=== PATIENT | female | born 1990 | race Caucasian/White ===

== ENCOUNTER 2020-03-12 08:06 | Outpatient (REF) | payer OTHER, SELFPAY | END 2020-03-12 08:07 | disposition home or self-care (01) | LOC: HO.LAB 08:06 | PROVIDERS: PCP Internal Medicine; Visit Provider Internal Medicine | DX: Z20.828 Contact with and (suspected) exposure to other viral communicable diseases (principal) | CPT/HCPCS: 87635 ==

== ENCOUNTER 2020-04-16 15:29 | Outpatient (REF) | payer OTHER, SELFPAY ==
[2020-04-16 16:02] LABS: MANUAL DIFF FLAG NO
[2020-04-16 16:05] LABS: Basophils Absolute Auto 0.1 X10*3/uL (0.0-0.2); Basophils Percent Auto 0.7 % (0-2); Eosinophils Absolute Auto 0.1 X10*3/uL (0.0-0.4); Eosinophils Percent Auto 1.1 % (0-4); Hematocrit 36.4 % (37-47); Hemoglobin 12.2 g/dl (12.0-16.0); Imm Gran Abs Auto 0.02 X10*3/uL (0.00-0.03); Imm Gran Pct Auto 0.2 % (0.0-0.4); Lymphocytes Absolute Auto 3.2 X10*3/uL (1.2-4.9); Lymphocytes Percent Auto 34.7 % (20-40); Mean Corpuscular HGB Conc 33.5 g/dl (31.0-35.0); Mean Corpuscular Hemoglobin 31.1 pg (27.0-33.0); Mean Corpuscular Volume 92.9 fL (80-98); Mean Platelet Volume 11.3 fL (9.4-12.3); Monocytes Absolute Auto 0.9 X10*3/uL (0.1-1.2); Monocytes Percent Auto 9.4 % (2-11); Neutrophils Percent Auto 53.9 % (45-73); Platelet Count 175 X10*3/uL (160-400); Red Blood Count 3.92 X10*6/uL (4.20-5.50); White Blood Count 9.2 X10*3/uL (4.8-10.8)
[2020-04-16 16:28] LABS: C Reactive Protein 0.15 mg/dL (< or = 0.50)
== END 2020-04-16 15:30 | disposition home or self-care (01) ==
LOC: HO.LAB 15:29
PROVIDERS: PCP Internal Medicine; Visit Provider Internal Medicine
DX: G43.909 Migraine, unspecified, not intractable, without status migrainosus (principal)
CPT/HCPCS: 36415; 85025; 86140

== ENCOUNTER → 2020-04-21 09:06 | Outpatient (BNVA) | payer OTHER, SELFPAY | PROVIDERS: PCP Internal Medicine; Referring Provider Internal Medicine; Visit Provider Urology | DX: Z76.89 Persons encountering health services in other specified circumstances (principal) ==

== ENCOUNTER → 2020-05-26 10:33 | Outpatient (BNVA) | payer OTHER, SELFPAY | PROVIDERS: PCP Internal Medicine; Visit Provider Surgery | DX: Z76.89 Persons encountering health services in other specified circumstances (principal) ==

== ENCOUNTER 2020-08-17 11:14 | Outpatient (REF) | payer OTHER, SELFPAY ==
[2020-08-17 16:49] LABS: CT PCR NOT DETECTED (Not Detect.); NG PCR NOT DETECTED (Not Detect.)
[2020-08-18 09:04] LABS: BV Int Neg Control Negative (Negative); BV Int Pos Control Positive (Positive)
== END 2020-08-17 11:15 | disposition home or self-care (01) ==
LOC: HO.LAB 11:14
PROVIDERS: Visit Provider Obstetrics & Gynecology
DX: Z11.3 Encounter for screening for infections with a predominantly sexual mode of transmission (principal); Z12.4 Encounter for screening for malignant neoplasm of cervix
CPT/HCPCS: 87480; 87491; 87510; 87591; 87660; 88142

== ENCOUNTER 2020-08-26 15:44 | Outpatient (REF) | payer OTHER, SELFPAY ==
--- NOTE | ~2020-08-26 | US_ITS ---
EXAMINATION: US PELVIS COMPLETE CLINICAL INFORMATION: Pelvic and perineal pain. COMPARISON: Ultrasound pelvis 06/06/2019. TECHNIQUE: Transabdominal and transvaginal ultrasound of the pelvis is performed. FINDINGS: On transabdominal ultrasound, the uterus is anteverted and anteflexed measuring 7.9 cm in length, 3.2 cm in AP and 4.5 cm in transverse dimension. Endometrial thickness is 0.5 cm. There is no focal lesion seen. There are small anechoic nabothian cysts with echogenic calcifications measuring 0.8 x 0.4 x 0.6 cm seen in the cervix. The right ovary measures 4.1 x 3.2 x 2.5 cm and volume 17.2 mL. It appears unremarkable. Previously, it measured 4.4 x 2.4 x 3.0 cm. The left ovary measures 3.1 x 2.4 x 2.2 cm and volume 8.6 mL. Previously, it measured 3.5 x 2.0 x 2.8 cm. US/US transvaginal IMPRESSION: 1. Complex nabothian cysts with calcification seen in the cervix. 2. The uterus and ovaries are unremarkable.
--- NOTE | ~2020-08-26 | US_ITS ---
EXAMINATION: US PELVIS COMPLETE CLINICAL INFORMATION: Pelvic and perineal pain. COMPARISON: Ultrasound pelvis 06/06/2019. TECHNIQUE: Transabdominal and transvaginal ultrasound of the pelvis is performed. FINDINGS: On transabdominal ultrasound, the uterus is anteverted and anteflexed measuring 7.9 cm in length, 3.2 cm in AP and 4.5 cm in transverse dimension. Endometrial thickness is 0.5 cm. There is no focal lesion seen. There are small anechoic nabothian cysts with echogenic calcifications measuring 0.8 x 0.4 x 0.6 cm seen in the cervix. The right ovary measures 4.1 x 3.2 x 2.5 cm and volume 17.2 mL. It appears unremarkable. Previously, it measured 4.4 x 2.4 x 3.0 cm. The left ovary measures 3.1 x 2.4 x 2.2 cm and volume 8.6 mL. Previously, it measured 3.5 x 2.0 x 2.8 cm. US/US pelvic complete IMPRESSION: 1. Complex nabothian cysts with calcification seen in the cervix. 2. The uterus and ovaries are unremarkable.
== END 2020-08-26 15:45 | disposition home or self-care (01) ==
LOC: HO.US 15:44
PROVIDERS: Visit Provider Obstetrics & Gynecology
DX: R10.2 Pelvic and perineal pain (principal)
CPT/HCPCS: 76830; 76856

== ENCOUNTER 2020-09-24 09:38 | Outpatient (REF) | payer OTHER, SELFPAY ==
[2020-09-24 14:10] LABS: HCG Quantitative 8600 mIU/mL
== END 2020-09-24 09:39 | disposition home or self-care (01) ==
LOC: HO.LAB 09:38
PROVIDERS: PCP Internal Medicine; Visit Provider Obstetrics & Gynecology
DX: O99.411 Diseases of the circulatory system complicating pregnancy, first trimester (principal); Z86.73 Personal history of transient ischemic attack (TIA), and cerebral infarction without residual deficits; Z3A.01 Less than 8 weeks gestation of pregnancy
CPT/HCPCS: 36415; 84702

== ENCOUNTER 2020-09-24 14:21 | Outpatient (REF) | payer OTHER, SELFPAY ==
--- NOTE | ~2020-09-24 | US_ITS ---
EXAMINATION: US OB PELVIC CLINICAL INFORMATION: Evaluate early stage of . COMPARISON: Ultrasound pelvis 08/26/2020 TECHNIQUE: Transabdominal pelvic ultrasound was performed. FINDINGS: There is a single gestational sac with visualization of yolk sac. The pole is not seen. No heartbeat seen. The mean gestational age is 1.05 cm corresponding to 7 weeks 2 days. The right ovary measures 4.24 x 2.98 x 2.91 cm. There is a small corpus luteal cyst measuring 2.1 x 1.6 x 1.2 cm. The left ovary measures 3.28 x 2.22 x 2.90 cm. There is no free fluid in the cul-de-sac. US/US OB pelvic and transvaginal IMPRESSION: Intrauterine gestational sac seen. There is no pole visualized. Mean gestational sac diameter corresponds to 7 weeks and 2 days.
== END 2020-09-24 14:22 | disposition home or self-care (01) ==
LOC: HO.HMGCX 14:21
PROVIDERS: PCP Internal Medicine; Visit Provider Obstetrics & Gynecology
DX: O99.411 Diseases of the circulatory system complicating pregnancy, first trimester (principal); Z3A.01 Less than 8 weeks gestation of pregnancy; Z86.73 Personal history of transient ischemic attack (TIA), and cerebral infarction without residual deficits
CPT/HCPCS: 76801; 76817

== ENCOUNTER 2020-10-08 10:03 | Outpatient (REF) | payer OTHER, SELFPAY ==
--- NOTE | ~2020-10-08 | US_ITS ---
EXAMINATION: US OBSTETRICAL ULTRASOUND CLINICAL INFORMATION: Size and dates. COMPARISON: None. LMP: 08/12/2020. Gestational age by maternal dates is 8 weeks and 1 day. Estimated date of delivery by maternal dates is 05/19/2021. TECHNIQUE: Transabdominal ultrasound of the pelvis is performed. FINDINGS: There is a single intrauterine gestational sac with visible yolk sac, embryo/fetus, and cardiac activity. There is no significant subchorionic hemorrhage or hematoma. HR: 139 beats per minute. CRL (crown rump length): 1.21 cm (7 weeks and 3 days +/- 4 days). CARLI (estimated date of delivery): 05/24/2021 +/- 4 days. There is visualization of yolk sac and heart rate. MATERNAL ADNEXA: The right maternal ovary measures 3.4 x 3.4 x 2.2 cm. There is involuting corpus luteal cyst. The left maternal ovary measures 2.7 x 3.3 x 2.1 cm. It appears unremarkable There is trace free fluid in the cul-de-sac. US/US OB <= 14 weeks fetus IMPRESSION: 1. Single intrauterine gestation with ultrasound gestational age of 7 weeks and 3 days +/- 4 days. 2. Estimated date of delivery is 05/24/2021 +/- 4 days. 3. Involuting corpus luteal cyst right ovary. 4. Trace free fluid in cul-de-sac.
== END 2020-10-08 10:04 | disposition home or self-care (01) ==
LOC: HO.US 10:03
PROVIDERS: Visit Provider Obstetrics & Gynecology
DX: Z34.90 Encounter for supervision of normal pregnancy, unspecified, unspecified trimester (principal)
CPT/HCPCS: 76801

== ENCOUNTER 2020-11-06 16:46 | Outpatient (REF) | payer OTHER, SELFPAY ==
[2020-11-06 18:29] LABS: Hematocrit 36.8 % (37-47); Hemoglobin 12.7 g/dl (12.0-16.0); Mean Corpuscular HGB Conc 34.5 g/dl (31.0-35.0); Mean Corpuscular Hemoglobin 31.1 pg (27.0-33.0); Mean Platelet Volume 10.9 fL (9.4-12.3); Platelet Count 206 X10*3/uL (160-400); Red Blood Count 4.09 X10*6/uL (4.20-5.50); Red Cell Distribution Width 11.9 % (11.0-16.0); White Blood Count 11.2 X10*3/uL (4.8-10.8)
[2020-11-06 19:30] LABS: Syphilis Screen Nonreactive (Nonreactive)
[2020-11-09 08:23] LABS: HBsAGNum1 0.34 S/CO (0.00-0.99); Hepatitis B Surface Antigen Negative (Negative); ~HepC Num1 0.13 S/CO (0.00-0.79); ~Hepatitis C Antibody Nonreactive (Nonreactive)
[2020-11-09 08:31] LABS: HIV AB/AG Nonreactive (Nonreactive)
[2020-11-09 17:52] LABS: Rubella IgG Antibody 4.88 Index
[2020-11-11 21:48] LABS: Beta-2 Glycoprotein IgA <2.0 U/mL (<20.0); Beta-2 Glycoprotein IgG <2.0 U/mL (<20.0); Beta-2 Glycoprotein IgM <2.0 U/mL (<20.0)
== END 2020-11-06 16:47 | disposition home or self-care (01) ==
LOC: HO.LAB 16:46
PROVIDERS: PCP Internal Medicine; Visit Provider Advanced Practice Midwife
DX: Z34.90 Encounter for supervision of normal pregnancy, unspecified, unspecified trimester (principal)
CPT/HCPCS: 36415; 85027; 86146; 86762; 86780; 86787; 86803; 86850; 86900; 86901; 87086; 87340; 87389

== ENCOUNTER 2020-11-11 11:43 | Emergency (ER) | payer OTHER, SELFPAY ==
--- NOTE | ~2020-11-11 | US_ITS ---
EXAMINATION: US PELVIS, LIMITED/FOLLOW UP and appendix ultrasound CLINICAL INFORMATION: Right lower quadrant pain COMPARISON: Previous OB ultrasound 10/08/2020 TECHNIQUE: Transabdominal imaging of the right lower quadrant and right pelvis FINDINGS: The right ovary measures 3.6 x 1.8 x 3.1 cm. There is a 1.3 x 1.2 x 1.2 cm complex cyst in the right ovary probably representing a corpus luteum. There is no fluid seen in the pelvis. The appendix is not identified. There is no fluid seen in the right lower quadrant. US/US pelvic limited IMPRESSION: Normal-appearing right ovary. The appendix is not identified.
--- NOTE | ~2020-11-11 | US_ITS ---
EXAMINATION: US PELVIS, LIMITED/FOLLOW UP and appendix ultrasound CLINICAL INFORMATION: Right lower quadrant pain COMPARISON: Previous OB ultrasound 10/08/2020 TECHNIQUE: Transabdominal imaging of the right lower quadrant and right pelvis FINDINGS: The right ovary measures 3.6 x 1.8 x 3.1 cm. There is a 1.3 x 1.2 x 1.2 cm complex cyst in the right ovary probably representing a corpus luteum. There is no fluid seen in the pelvis. The appendix is not identified. There is no fluid seen in the right lower quadrant. US/US appendix IMPRESSION: Normal-appearing right ovary. The appendix is not identified.
[2020-11-11 11:50] VITALS: BP 126/76; PULSE 86; RESP 18; TEMP 36.7; O2SAT 99; BMI 24.8
--- NOTE | 2020-11-11 11:56 | ED_ITS ---
HPI - Abdominal Pain General Chief Complaint: Abdominal Pain Stated Complaint: Abd Pain Time Seen by Provider: 11/11/20 11:53 Source: patient Mode of arrival: ambulatory Limitations: no limitations History of Present Illness HPI narrative: 30 yo female hx of complex migraines, PFO but not a stroke, G1 D = LMP and US here with R sided pelvic pain after US yesterday after tech was pushing (regular screening OB US) no dysuria, + BM x 2, had US yesterday told R ovary was normal has hx of R sided ovarian cysts MD elicited complaint: other (pelvic pain) Pertinent past history: other (ovarian cyst) Onset (ago): day(s) (1) Pain Consistency: constant Location: pelvis Severity: moderate Quality: aching Radiation: none Migration to: no migration Exacerbating factors: nothing Relieving factors: nothing Context: other ( ) Associated symptoms: denies other symptoms Related Data Home Medications Medication Instructions Recorded Confirmed nitrofurantoin 1 cap PO BID 04/21/20 monohydrate/macrocrystals 100 mg capsule propranolol 60 mg capsule,24 60 mg PO DAILY 04/21/20 hr,extended release acyclovir 400 mg tablet 400 mg PO DAILY 09/24/20 prenat.vits,sonia,eja-pnyu-czsxj 1 tab PO DAILY 09/24/20 Previous Rx's Medication Instructions Recorded trimethoprim 100 mg tablet 100 mg PO DAILY 90 Days #90 tab 04/21/20 nitroglycerin 0.4 % (w/w) rectal 1 inch NJ BID #30 g 05/26/20 ointment Allergies Allergy/AdvReac Type Severity Reaction Status Date / Time penicillin V Allergy Unknown rash Verified 09/24/20 09:48 Penicillins [PENICILLINS] Allergy Unknown RASH Verified 09/24/20 09:48 Review of Systems Review of Systems Constitutional : No Weight loss, No Fever, No Chills ENT/Mouth : No sore throat, No Rhinorrhea Eyes: No Swelling, No Redness Cardiovascular : No Chest Pain, No SOB, NoEdema Respiratory : No Cough, No Sputum, No Wheezing Gastrointestinal : no Nausea, no Vomiting, no Diarrhea, positive abdominal Pain, No Hematochezia, No Melena Genitourinary : No Dysuria, No Urinary Frequency, No Hematuria, No Urgency Musculoskeletal : No joint pain, No Myalgias, No Joint Swelling Skin : No Skin Lesions, No rash Neuro : No Weakness, No Numbness, No Dizziness, No Headache Psych : No Anxiety/Panic, No Depression Heme/Lymph: No Bruising, No Lymphadenopathy Endocrine : No Polyuria, No Polydipsia All other systems reviewed and are negative. Physical Exam Vital Signs: Vital Signs: Last Vital Signs Temp 98.0 F 11/11/20 11:50 Pulse 86 11/11/20 11:50 Resp 18 11/11/20 11:50 BP 126/76 11/11/20 11:50 Pulse Ox 99 11/11/20 11:50 Body Mass Index 24.8 Appearance: Alert. Oriented X3. No acute distress. Eyes: Pupils equal, round and reactive to light. ENT: Pharynx normal. Neck: Normal inspection. Neck supple. CVS: Normal heart rate and rhythm. Pulses normal. Respiratory: No respiratory distress. Breath sounds normal. Abdomen: Soft and mild inguinal ttp no mass felt Skin: Skin warm and dry. Normal skin color. Normal skin turgor. Extremities: No lower extremity edema. No calf ttp Neuro: Oriented X 3. No motor deficit. No sensory deficit. Course Course Course Narrative: no acute findings, pain during US over ovary at this time will DC home with watchful waiting and appendix precautions MDM - Abdominal Pain MDM Narrative Medical decision making narrative: 30 yo female hx of complex migraines, PFO but not a stroke here with R sided pelvic pain after US yesterday after tech was pushing (regular screening OB US) no dysuria, + BM x 2, had US yesterday told R ovary was normal has hx of R sided ovarian cysts at this time labs, US of appendix and ovaries ordered, IVF, and UA could be round ligament pain as well, dispo per results and findings. Lab Data Result diagrams: 11/11/20 12:06 11/11/20 12:06 Labs: Lab Results 11/11/20 11/11/20 11/11/20 Range/Units 12:06 12:06 12:14 WBC 13.1 H (4.8-10.8) X10*3/uL RBC 4.16 L (4.20-5.50) X10*6/uL Hgb 13.0 (12.0-16.0) g/dl Hct 37.3 (37-47) % MCV 89.7 (80-98) fL MCH 31.3 (27.0-33.0) pg MCHC 34.9 (31.0-35.0) g/dl RDW 11.9 (11.0-16.0) % Plt Count 201 (160-400) X10*3/uL MPV 10.4 (9.4-12.3) fL Immature Gran % (Auto) 0.4 (0.0-0.4) % Neut % (Auto) 72.4 (45-73) % Lymph % (Auto) 20.2 (20-40) % Levy % (Auto) 6.3 (2-11) % Eos % (Auto) 0.3 (0-4) % Baso % (Auto) 0.4 (0-2) % Lymph # (Auto) 2.7 (1.2-4.9) X10*3/uL [place] # (Auto) 0.8 (0.1-1.2) X10*3/uL Eos # (Auto) 0.0 (0.0-0.4) X10*3/uL Baso # (Auto) 0.1 (0.0-0.2) X10*3/uL Abs Immat Gran (auto) 0.05 H (0.00-0.03) X10*3/uL Absolute Neuts (auto) 9.5 H (2.0-8.3) X10*3/uL Absolute Nucleated RBC 0.000 (0.0-0.012) X10*3/uL Nucleated RBC % (auto) 0.0 (0.0-0.2) /100WBC Sodium 134 L (135-145) mmol/L Potassium 3.7 (3.3-5.1) mmol/L Chloride 103 (96-108) mmol/L Carbon Dioxide 23 (22-29) mmol/L Anion Gap 12 (12-20) BUN 9 (9-16) mg/dL Creatinine 0.63 (0.5-1.4) mg/dL Estim Creat Clear Calc 113.8 Estimated GFR > 60 Random Glucose 77 (60-115) mg/dL Calcium 9.5 (8.4-10.2) mg/dL Total Bilirubin 0.3 (0.0-1.0) mg/dL Direct Bilirubin 0.2 (0.0-0.5) mg/dL AST 20 (5-31) U/L ALT 12 (0-31) U/L Alkaline Phosphatase 68 (39-117) U/L Total Protein 6.9 (6.5-8.0) g/dL Albumin 4.0 (3.5-5.0) g/dL Urine Color YELLOW Urine Appearance CLEAR Urine pH 6.0 (5.0-8.0) Ur Specific [place] 1.015 (1.005-1.025) Urine Protein NEG (NEG-TRACE) MG/DL Urine Glucose (UA) NEG (NEG) MG/DL Urine Ketones 15 (NEG) MG/DL Urine Blood NEG (NEG) Urine Nitrite NEG (NEG) Ur Leukocyte Esterase NEG (NEG) Discharge Plan Discharge Clinical Impression: Pelvic pain, Acute dehydration, Corpus luteum cyst Patient Disposition: Home, Self-Care Instructions: Pelvic Pain (ED), Acute Abdominal Pain (ED) Additional Instructions: return to ED for any worsening symptoms or concerns watchful waiting, make sure fevers, nausea and no worsening of pain occurs to make sure this isn't early appendicitis call your OBGYN with update US: FINDINGS: The right ovary measures 3.6 x 1.8 x 3.1 cm. There is a 1.3 x 1.2 x 1.2 cm complex cyst in the right ovary probably representing a corpus luteum. There is no fluid seen in the pelvis. The appendix is not identified. There is no fluid seen in the right lower quadrant. US/US pelvic limited IMPRESSION: Normal-appearing right ovary. The appendix is not identified. Prescriptions: No Action nitroglycerin 0.4 % (w/w) ointment 1 inch NJ BID Qty: 30 RF: 2 nitrofurantoin monohyd/m-cryst 100 mg capsule 1 cap PO BID RF: 0 propranolol 60 mg capsule,extended release 24 hr 60 mg PO DAILY RF: 0 trimethoprim 100 mg tablet 100 mg PO DAILY 90 Days Qty: 90 RF: 1 prenat.vits,sonia,[id number]-khar-dqshz Tablet 1 tab PO DAILY RF: 0 acyclovir 400 mg tablet 400 mg PO DAILY RF: 0 Stand Alone Forms: Work/School Release [facility] Past Medical History Attestation statement: The following information was validated with the patient. Medical History Stroke Surgical History History of removal of cyst Family History Family History Maternal Grandfather History of breast cancer Paternal Grandmother History of breast cancer Maternal Grandmother History of colon cancer Social History Social History Alcohol intake: current Alcohol intake frequency: holidays/special occasions only Patient Tobacco Use Status: Never used Tobacco Use of substances other than those prescribed or required for medical reasons: No Advance Directives: No Advance Directives Information Provided: No Patient : Yes Gender identity: female
[2020-11-11] MEDS: 0.9 % Sodium Chloride 1,000 ML 999 ML IVCONT (12:07)
[2020-11-11 12:12] LABS: MANUAL DIFF FLAG NO
[2020-11-11 12:13] LABS: Basophils Absolute Auto 0.1 X10*3/uL (0.0-0.2); Basophils Percent Auto 0.4 % (0-2); Eosinophils Percent Auto 0.3 % (0-4); Hematocrit 37.3 % (37-47); Imm Gran Abs Auto 0.05 X10*3/uL (0.00-0.03); Imm Gran Pct Auto 0.4 % (0.0-0.4); Lymphocytes Absolute Auto 2.7 X10*3/uL (1.2-4.9); Lymphocytes Percent Auto 20.2 % (20-40); Mean Corpuscular HGB Conc 34.9 g/dl (31.0-35.0); Mean Corpuscular Hemoglobin 31.3 pg (27.0-33.0); Mean Corpuscular Volume 89.7 fL (80-98); Mean Platelet Volume 10.4 fL (9.4-12.3); Monocytes Absolute Auto 0.8 X10*3/uL (0.1-1.2); Monocytes Percent Auto 6.3 % (2-11); Neutrophils Absolute Auto 9.5 X10*3/uL (2.0-8.3); Neutrophils Percent Auto 72.4 % (45-73); Platelet Count 201 X10*3/uL (160-400); Red Blood Count 4.16 X10*6/uL (4.20-5.50); Red Cell Distribution Width 11.9 % (11.0-16.0); White Blood Count 13.1 X10*3/uL (4.8-10.8)
[2020-11-11 12:31] LABS: Glucose Urine UA NEG (NEG); Leukocyte Esterase Urine NEG (NEG); Nitrite Urine NEG (NEG); Specific Gravity - Urine 1.015 (1.005-1.025); Urine Blood NEG (NEG); Urine Ketones 15 MG/DL (NEG); Urine Protein NEG (NEG-TRACE)
[2020-11-11 12:34] LABS: Appearance Urine CLEAR; Color Urine YELLOW
[2020-11-11 12:44] LABS: Alanine Aminotransferase 12 U/L (0-31); Alkaline Phosphatase 68 U/L (39-117); Anion Gap 12 (12-20); Aspartate Amino Transferase 20 U/L (5-31); Bilirubin Direct 0.2 mg/dL (0.0-0.5); Bilirubin Total 0.3 mg/dL (0.0-1.0); Blood Urea Nitrogen 9 mg/dL (9-16); Calcium 9.5 mg/dL (8.4-10.2); Carbon Dioxide 23 mmol/L (22-29); Chloride 103 mmol/L (96-108); Creatinine Clr Calc Pharmacy 113.8; Estimated Glomerular Filt Rate > 60; Glucose Random 77 mg/dL (60-115); Potassium 3.7 mmol/L (3.3-5.1); Sodium 134 mmol/L (135-145); Total Protein 6.9 g/dL (6.5-8.0)
--- NOTE | 2020-11-11 13:16 | PC.NURSE ---
PT REPORTS HAVING THIS LOWER ABD PAIN AFTER AN US YESTERDAY, STATES IT FEELS LIKE A CYST, HX OF CYST IN THE PAST, DENIES N/V/D/FEVERS
== END 2020-11-11 13:54 | disposition home or self-care (01) ==
PROVIDERS: Emergency Provider Emergency Medicine; PCP Internal Medicine
DX: O26.899 Other specified pregnancy related conditions, unspecified trimester (principal); R10.2 Pelvic and perineal pain; O99.280 Endocrine, nutritional and metabolic diseases complicating pregnancy, unspecified trimester; E86.0 Dehydration; O34.80 Maternal care for other abnormalities of pelvic organs, unspecified trimester; N83.11 Corpus luteum cyst of right ovary; Z3A.00 Weeks of gestation of pregnancy not specified; Q21.1 Atrial septal defect
CPT/HCPCS: 36415; 76705; 76857; 80048; 80076; 81003; 85025; 96360; 99284

== ENCOUNTER → 2021-02-10 16:10 | Outpatient (BNVA) | payer SELFPAY | PROVIDERS: PCP Internal Medicine | DX: R76.11 Nonspecific reaction to tuberculin skin test without active tuberculosis (principal) ==

== ENCOUNTER 2021-03-02 18:32 | Emergency (ER) | payer OTHER, SELFPAY ==
--- NOTE | ~2021-03-02 | US_ITS ---
EXAMINATION: PELVIC ULTRASOUND CLINICAL INFORMATION: 28 weeks with right lower quadrant pain and question of ovarian torsion COMPARISON: Prior pelvic ultrasound 11/11/2020 TECHNIQUE: The examination was essentially limited to evaluation of the ovaries. FINDINGS: Live fetus was present with a heart rate of 155 bpm. No further investigation was performed. The right ovary measures 3.5 x 3.4 x 2.6 cm and appears normal. Left ovary measures 2.2 x 2.8 x 2.1 cm and appears normal. Normal arterial and venous flow is seen in both ovaries and there is no evidence to suggest ovarian torsion. US/US pelvic ovarian doppler IMPRESSION: Normal-appearing ovaries without evidence of vascular compromise to suggest ovarian torsion.
[2021-03-02 18:36] VITALS: BP 111/65; PULSE 102; RESP 18; TEMP 37; O2SAT 100; BMI 28.3
--- NOTE | 2021-03-02 18:46 | PC.NURSE ---
at bedside for primary eval.
--- NOTE | 2021-03-02 18:59 | ED_ITS ---
HPI - Abdominal Pain General Chief Complaint: Abdominal Pain Stated Complaint: Abd Pain Time Seen by Provider: 03/02/21 18:42 Source: patient and old records reviewed History of Present Illness HPI narrative: Patient with severe right lower quadrant pain. She is approximately 28 weeks and states she had sudden onset right lower quadrant pain at about 10:00 a.m.. There was severe to the point where she could not walk or tolerate standing. They resolve spontaneously however. Then approximately an hour ago came back. It is still there and is not resolved on its own. She has had 3 similar episodes in her to date. They have all resolved on their own. She had a workup after the 1st episode consisting of an ultrasound and lab work which was unremarkable at that time. They are considering doing an MRI to look for appendicitis but as the symptoms totally resolved they did not. She complains also of some nausea but no vomiting. No diarrhea. She has been having some constipation throughout the but had normal bowel movement this morning. No urinary symptoms or dysuria. She does have a history of ovarian cysts on the right side. No other significant medical problems. No recent fevers. No recent COVID symptoms. She has had no complications of the itself. She is having normal movement. Related Data Home Medications Medication Instructions Recorded Confirmed nitrofurantoin 1 cap PO BID 04/21/20 monohydrate/macrocrystals 100 mg capsule propranolol 60 mg capsule,24 60 mg PO DAILY 04/21/20 hr,extended release acyclovir 400 mg tablet 400 mg PO DAILY 09/24/20 prenat.vits,sonia,kwy-vvol-hmvdr 1 tab PO DAILY 09/24/20 Previous Rx's Medication Instructions Recorded trimethoprim 100 mg tablet 100 mg PO DAILY 90 Days #90 tab 04/21/20 nitroglycerin 0.4 % (w/w) rectal 1 inch DE BID #30 g 05/26/20 ointment Allergies Allergy/AdvReac Type Severity Reaction Status Date / Time penicillin V Allergy Unknown rash Verified 03/02/21 18:36 Penicillins [PENICILLINS] Allergy Unknown RASH Verified 03/02/21 18:36 Review of Systems Constitutional: Denies fever(s) Comments: No chest pain Comments: No dyspnea Comments: Abdominal pain as described in HPI Comments: No bleeding or discharge or dysuria Comments: No rash Physical Exam Vital Signs: Vital Signs: Last Vital Signs Temp 98.0 F 03/02/21 22:20 Pulse 88 03/02/21 22:20 Resp 17 03/02/21 22:20 BP 109/56 L 03/02/21 22:20 Pulse Ox 98 03/02/21 22:20 Body Mass Index 28.3 Course Course Course Narrative: Differential diagnosis would include Intermittent ovarian torsion Ovarian cyst Appendicitis is possible but seems less likely given waxing and waning symptomat ology. Kidney stone Urinary tract infection Complications of IV saline Acetaminophen for pain. Patient at this point declining anything stronger. She is also declining in by medics. Will start the workup with an ultrasound with a question of ovarian torsion or cyst 10:05 p.m.. Workup in the emergency department shows unremarkable ultrasound. Urinalysis is normal. Blood work is unremarkable. Patient states when she is crouched on all fours she has no pain. Laying on her left side still causes pain in her right lower quadrant. Consult out to OBGYN at [facility] where she receives her care 11:17 p.m.. Case was discussed with OB resident at [facility]. Recommend transfer to [facility] for better evaluation. Transfer will be arranged for undifferentiated right lower quadrant abdominal pain in 3rd trimester MDM - Abdominal Pain Lab Data Result diagrams: 03/02/21 19:12 03/02/21 19:12 Labs: Lab Results 03/02/21 03/02/21 03/02/21 Range/Units 19:12 19:12 20:24 WBC 13.5 H (4.8-10.8) X10*3/uL RBC 3.72 L (4.20-5.50) X10*6/uL Hgb 11.8 L (12.0-16.0) g/dl Hct 33.9 L (37-47) % MCV 91.1 (80-98) fL MCH 31.7 (27.0-33.0) pg MCHC 34.8 (31.0-35.0) g/dl RDW 12.2 (11.0-16.0) % Plt Count 191 (160-400) X10*3/uL MPV 10.3 (9.4-12.3) fL Immature Gran % (Auto) 1.2 H (0.0-0.4) % Neut % (Auto) 80.7 H (45-73) % Lymph % (Auto) 11.9 L (20-40) % [place] % (Auto) 5.1 (2-11) % Eos % (Auto) 0.8 (0-4) % Baso % (Auto) 0.3 (0-2) % Lymph # (Auto) 1.6 (1.2-4.9) X10*3/uL [place] # (Auto) 0.7 (0.1-1.2) X10*3/uL Eos # (Auto) 0.1 (0.0-0.4) X10*3/uL Baso # (Auto) 0.0 (0.0-0.2) X10*3/uL Abs Immat Gran (auto) 0.16 H (0.00-0.03) X10*3/uL Absolute Neuts (auto) 10.9 H (2.0-8.3) X10*3/uL Absolute Nucleated RBC 0.000 (0.0-0.012) X10*3/uL Nucleated RBC % (auto) 0.0 (0.0-0.2) /100WBC Sodium 136 (135-145) mmol/L Potassium 3.8 (3.3-5.1) mmol/L Chloride 105 (96-108) mmol/L Carbon Dioxide 22 (22-29) mmol/L Anion Gap 13 (12-20) BUN 10 (9-16) mg/dL Creatinine 0.64 (0.5-1.4) mg/dL Estim Creat Clear Calc 118.0 Estimated GFR > 60 Random Glucose 110 (60-115) mg/dL Calcium 8.6 D (8.4-10.2) mg/dL Total Bilirubin 0.2 (0.0-1.0) mg/dL AST 20 (5-31) U/L ALT 17 (0-31) U/L Alkaline Phosphatase 100 D (39-117) U/L Total Protein 6.3 L (6.5-8.0) g/dL Albumin 3.4 L (3.5-5.0) g/dL Urine Color YELLOW Urine Appearance CLEAR Urine pH 6.5 (5.0-8.0) Ur Specific [place] 1.010 (1.005-1.025) Urine Protein NEG (NEG-TRACE) MG/DL Urine Glucose (UA) NEG (NEG) MG/DL Urine Ketones NEG (NEG) MG/DL Urine Blood NEG (NEG) Urine Nitrite NEG (NEG) Ur Leukocyte Esterase TRACE H (NEG) Urine RBC 0-2 (0) /HPF Urine WBC 1-4 (0-4) /HPF Ur Squamous Epith Cells TRACE /LPF Urine Bacteria TRACE /LPF Discharge Plan Discharge Clinical Impression: Abdominal pain Patient Disposition: [facility] Transfer Details: [facility] [place] Women's Instructions: Abdominal Pain in (ED) Additional Instructions: Go to [facility] The accepting physician is Dr. Kaufman Prescriptions: No Action nitroglycerin 0.4 % (w/w) ointment 1 inch DE BID Qty: 30 RF: 2 nitrofurantoin monohyd/m-cryst 100 mg capsule 1 cap PO BID RF: 0 propranolol 60 mg capsule,extended release 24 hr 60 mg PO DAILY RF: 0 trimethoprim 100 mg tablet 100 mg PO DAILY 90 Days Qty: 90 RF: 1 prenat.vits,sonia,jkd-ftyp-nrynu Tablet 1 tab PO DAILY RF: 0 acyclovir 400 mg tablet 400 mg PO DAILY RF: 0 PMFSH Past Medical History Medical History Stroke Surgical History History of removal of cyst Family History Family History Maternal Grandfather History of breast cancer Paternal Grandmother History of breast cancer Maternal Grandmother History of colon cancer Social History Social History Alcohol intake: never Patient Tobacco Use Status: Never used Tobacco Use of substances other than those prescribed or required for medical reasons: No Advance Directives: No Advance Directives Information Provided: No Advance Directives on File: No Patient : Yes Gender identity: Female
[2021-03-02 19:18] LABS: MANUAL DIFF FLAG NO
[2021-03-02 19:19] LABS: Basophils Percent Auto 0.3 % (0-2); Eosinophils Absolute Auto 0.1 X10*3/uL (0.0-0.4); Eosinophils Percent Auto 0.8 % (0-4); Hematocrit 33.9 % (37-47); Hemoglobin 11.8 g/dl (12.0-16.0); Imm Gran Abs Auto 0.16 X10*3/uL (0.00-0.03); Imm Gran Pct Auto 1.2 % (0.0-0.4); Lymphocytes Absolute Auto 1.6 X10*3/uL (1.2-4.9); Lymphocytes Percent Auto 11.9 % (20-40); Mean Corpuscular HGB Conc 34.8 g/dl (31.0-35.0); Mean Corpuscular Hemoglobin 31.7 pg (27.0-33.0); Mean Corpuscular Volume 91.1 fL (80-98); Mean Platelet Volume 10.3 fL (9.4-12.3); Monocytes Absolute Auto 0.7 X10*3/uL (0.1-1.2); Monocytes Percent Auto 5.1 % (2-11); Neutrophils Absolute Auto 10.9 X10*3/uL (2.0-8.3); Neutrophils Percent Auto 80.7 % (45-73); Platelet Count 191 X10*3/uL (160-400); Red Blood Count 3.72 X10*6/uL (4.20-5.50); Red Cell Distribution Width 12.2 % (11.0-16.0); White Blood Count 13.5 X10*3/uL (4.8-10.8)
--- NOTE | 2021-03-02 19:24 | PC.NURSE ---
PT transport to US via stretcher.
[2021-03-02] MEDS: Acetaminophen 325 MG TABLET 650 MG PO (19:35)
[2021-03-02] MEDS: 0.9 % Sodium Chloride 500 ML IV (19:35)
[2021-03-02 19:37] VITALS: BP 115/69; PULSE 103; RESP 16; O2SAT 98
[2021-03-02 19:38] LABS: Alanine Aminotransferase 17 U/L (0-31); Albumin Level 3.4 g/dL (3.5-5.0); Alkaline Phosphatase 100 U/L (39-117); Anion Gap 13 (12-20); Aspartate Amino Transferase 20 U/L (5-31); Bilirubin Total 0.2 mg/dL (0.0-1.0); Blood Urea Nitrogen 10 mg/dL (9-16); Calcium 8.6 mg/dL (8.4-10.2); Carbon Dioxide 22 mmol/L (22-29); Chloride 105 mmol/L (96-108); Estimated Glomerular Filt Rate > 60; Glucose Random 110 mg/dL (60-115); Potassium 3.8 mmol/L (3.3-5.1); Sodium 136 mmol/L (135-145); Total Protein 6.3 g/dL (6.5-8.0)
[2021-03-02 20:32] LABS: Appearance Urine CLEAR; Color Urine YELLOW; Glucose Urine UA NEG (NEG); Leukocyte Esterase Urine TRACE (NEG); Nitrite Urine NEG (NEG); PH 6.5 (5.0-8.0); UACC Culture Trigger YES; Urine Blood NEG (NEG); Urine Ketones NEG (NEG); Urine Protein NEG (NEG-TRACE)
[2021-03-02 20:47] LABS: Bacteria Urine TRACE /LPF; RBC Urine 0-2 /HPF (0); Squamous Epithelial Cell Urine TRACE /LPF
--- NOTE | 2021-03-02 22:16 | PC.NURSE ---
Pt has had waves of RLQ pain at times becoming teary. In last 30 minutes found that kneeling on all 4's relieves pain. MD aware. Awaits re eval and call out to Ratna Louise.
[2021-03-02 22:20] VITALS: BP 109/56; PULSE 88; RESP 17; TEMP 36.7; O2SAT 98
[2021-03-02 23:58] VITALS: BP 112/67; PULSE 88; RESP 16; TEMP 36.7; O2SAT 96
--- NOTE | 2021-03-03 00:06 | PC.NURSE ---
REPORT GIVEN TO CHIP MYERS AT [facility] 2. UNDERSTANDING THAT PT WILL BE TRANSFERRED BY CAR. [facility] WANTS PT'S HEPLOCK REMOVED BEFORE TRANSFER. PT TO ARRIVE AT [facility]. SECURITY CAN ASSIST WITH WC. PT ABLE TO TOLERATE WATER AND REQUESTED SALTINES. PT STILL EXPERIENCING PAIN, RELIEVED SOMEWHAT BY RLR POSITION AND WHEN ON ALL FOURS.
== END 2021-03-03 00:22 | disposition short-term general hospital (02) ==
PROVIDERS: Emergency Provider Emergency Medicine; PCP Internal Medicine
DX: O26.93 Pregnancy related conditions, unspecified, third trimester (principal); R10.9 Unspecified abdominal pain; Z3A.28 28 weeks gestation of pregnancy; Z79.899 Other long term (current) drug therapy
CPT/HCPCS: 36415; 80053; 81001; 85025; 87086; 93975; 96360; 99285

== ENCOUNTER 2021-09-22 11:50 | Outpatient (REF) | payer OTHER, SELFPAY ==
[2021-09-22 12:34] LABS: Influenza A PCR NEGATIVE (Negative); Influenza B PCR NEGATIVE (Negative); Resp Syncy Virus RNA Qual PCR NEGATIVE (Negative); SARS COV2 PCR INHOUSE POSITIVE (Negative)
== END 2021-09-22 11:51 | disposition home or self-care (01) ==
LOC: HO.LNP 11:50
PROVIDERS: Visit Provider Hospitalist
DX: Z20.822 Contact with and (suspected) exposure to COVID-19 (principal); B34.9 Viral infection, unspecified
CPT/HCPCS: 0241U

== ENCOUNTER 2021-12-17 09:00 | Outpatient (RCR) | payer OTHER, SELFPAY ==
--- NOTE | 2021-11-04 15:14 | MHC.PT.EP ---
[facility] [place] Office [place] Office [place] Office [address] Igor Shannon [address] [phone] F: [phone] F: [phone] F: [phone] F: [phone] Physical Therapy Plan of Care Date of Evaluation: Date of Surgery: NA Diagnosis: LOW BACK PAIN Assessment: Pt IS 31 YO F REFERRED TO PT FROM DR BAUTISTA WITH LOW BACK PAIN. Pt REPORTS PAIN STARTED A LITTLE LESS THAN 2 WKS AGO AFTER FLEXED AT WAIST (BRUSHING TEETH AT SINK). 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 WAS ABLE TO TAKE A FEW DAYS OFF WORK (REST, ICE, MH, PREDNISONE) WITH RELIEF. SAW MD AND REFERRED TO PT. PRESENTS WITH GOOD LE STRENGTH, DIASTASIS RECTI (2 FINGER WIDTH), SLIGHT DECREASE IN HS FLEXIBILITY, DECREASE TRUNK FLEXIBILITY (FLEX AND EXT), AND PELVIC ASYMM. Pt SHOULD BENEFIT FROM PT TO ADDRESS THESE ISSUES Frequency and Duration: The patient will be seen 2X/WK X 4 WKS Short Term Goals: 1. INCREASED POSTURE AWARENESS AND AWARENESS BACK CARE 2. Pt TO PERF 2-3 TASKS (WORK REL, CHILDCARE RELATED) WITH PROPER BODY MECH Payroll Officer Goals: 1. I HEP WITH DC EX PLAN 2. IMPROVED MOD OSWESTRY ( SOC) 3. DECREASED BACK PAIN AT LEAST 50% WITH ADLS Treatment Plan: Modalities to reduce pain, spasms and effusion. Manual therapy to restore motion and function. Therapeutic exercise to improve strength and flexibility. Neuromuscular re-education for posture and balance. Therapeutic activities to return to functional activities of daily living. Electronically signed by: KVNG BROWN PT Please sign and return to therapist. Thank you for your referral.
--- NOTE | 2022-01-10 13:40 | MHC.PT.DC ---
[facility] [place] Office [place] Office [place] Office [address] Igor Shannon [address] [phone] F: [phone] F: [phone] F: [phone] F: [phone] Physical Therapy Discharge Report Diagnosis: LOW BACK PAIN Date of Surgery: NA Date of Evaluation: 11/04/21 Date of Discharge: 01/10/22 Treatments to Date: 7 Cancellations to Date: No Shows to Date: Discharge Status: Improved Function Independent with HEP Patient Elected to Stop Discharge Summary: PER LAST NOTE BY SUSAN VASQUEZ PT,DPT 12/17/21 Pt expressing overall improvement with core program, still challenged with prone hip ext bilaterally but has been doing exercises 3-4x/weekly.. Pt expressing sx when kneeling with attempting to bathe child in tub- discussed alternative body mechanics position in order to ease sx such as half kneeling switching legs when fatigued. Cues to ensure proper technique of static lunge, squat, and lateral stepping while in the office today (no anterior translation of knee over toe). Pt requesting to trial I HEP at this time. We discussed slow integration and progression of core workouts, discussed potential reintegration of [place] workouts, walking program. Pt mentioned prior use of body weight video workouts advised to start with slow pace and avoid impact tasks, progressing slowly as tolerated. Weakness in abdominal wall persists- hx diastisis recti post . Pt to D/C to I HEP at this time however pt encouraged to call should sx change/flare occurs. Pt expressing significant improvements in recent weeks since starting PT. Electronically signed by: KVNG BROWN PT Please sign and return to therapist. Thank you for your referral.
== END 2022-01-10 13:40 | disposition home or self-care (01) ==
LOC: HO.PTWFD 09:00
PROVIDERS: PCP Internal Medicine; Visit Provider Internal Medicine
DX: M54.50 Low back pain, unspecified (principal)
CPT/HCPCS: 97014; 97110; 97140; 97161; 97535

== ENCOUNTER 2024-09-05 09:00 | Outpatient (AMB) | payer OTHER, SELFPAY ==
--- NOTE | 2024-09-05 09:02 | A.OFFVIS_ITS ---
Intake Visit Reasons: urinary incontinence Intake Note: New Patient presents for initial visit for recurrent uti Urology Medications: none Blood Thinner: none PVR: 0ml's Assistant Production Manager Required: No Accompanied by: Self / Same As Patient Allergies penicillin V Allergy (Unknown, Verified 09/05/24 09:35) rash Penicillins [PENICILLINS] Allergy (Unknown, Verified 09/05/24 09:35) RASH Medication List - Last Reconciled 09/05/24 by ALFA Enrique- loratadine (Allergy Relief (loratadine)) 10 mg PO DAILY sertraline 50 mg PO DAILY HPI Comments Details: Kinza Feliz is a very pleasant 34-year-old female patient of Dr. Summers. She has a past medical history of CVA. She presents to the office today for follow-up of her recurrent urinary tract infections. In discussion with the patient today she reports to be doing and feeling well. She denies any curr ent urinary issues. In office urinalysis results reviewed with the patient today. PVR 0 mL. She does report recurrent urinary tract infections (UTIs) occurring approximately three to four times a year. She describes an intermittent sensation post-urination, feeling an irritating presence in the urethra rather than pain, occurring once every one to two months. This sensation has not escalated to an infection. She also reports intermittent episodes of vaginal irritation, often following sex, but tests for bacterial vaginosis and yeast remain negative as she has followed up with her administrative support specialist. The itchiness and irritation align with certain points in her menstrual cycle but have not correlated with an active infection upon testing. Results - Urinalysis: Normal with no leukocytes, nitrites, or blood. - Bladder Scan: Complete bladder emptying. Plan To manage recurrent urinary tract infections, I recommend ensuring increased fluid intake and prescribing a prophylactic macrobid dose following recognized triggering activities such as sexual intercourse. For managing vaginal irritation, avoid active cleaning agents aside from water, and consider post- intercourse hygiene. Patient was informed and verbally consented to the use of an ambient scribe for clinic note documentation during this visit. Discussion Notes We discussed potential causes of recurrent urinary tract infections as well as further treatment options and risks and benefits of these treatment options. We reviewed the use of low-dose antibiotics post-coitus as a preventive measure, weighing the benefits of reducing UTI recurrence against the minimal risk of antibiotic exposure. The importance of hydration during activity upticks was emphasized, alongside strategies for improved perineal hygiene to prevent irritation. [facility] Medical History Stroke Surgical History History of removal of cyst Family History Maternal Grandfather History of breast cancer Paternal Grandmother History of breast cancer Maternal Grandmother History of colon cancer Social History Alcohol intake: never Patient Tobacco Use Status: Never used Tobacco Gender identity: Female Review of Systems Const All systems reviewed & are unremarkable except as noted in HPI and below Physical Exam Const General: cooperative, healthy appearing, comfortable, no acute distress, well developed, alert and awake Nutritional Appearance: average body habitus Orientation/consciousness: patient oriented x3 Limitations: no limitations HEENT Head: Yes normal to inspection, Yes normocephalic and Yes atraumatic Ears: hearing grossly normal bilaterally Eyes General: appearance normal, both eyes and all related structures Neck Neck: Yes normal visual inspection and Yes trachea midline Chest Chest palpation & inspection: normal inspection of the chest Resp Effort & Inspection: normal respiratory effort and able to speak in complete sentences Cardio Rate: regular rate GI Inspection: Yes normal to inspection General: Yes no CVA tenderness Back/Spine/Pelvis Back: no CVA tenderness Skin General skin exam: no rashes or lesions noted Neuro General: patient oriented x3 Extrem General: Yes normal to inspection Psych Appearance: grossly normal and well kempt Mental Status: mental status grossly normal Speech and movement: Normal speech and movement present and Clear speech present Affect: normal affect Attitude: cooperative Thought process: Normal thought process present Thought content: Normal thought content present Insight: Good insight present (Psych) Judgement: Good judgement present (Psych) Office Procedures Post Void Residual Post Residual Void Post Void Residual (PVR): 0 [id number] Void Residual by ultrasound Results AMB Urinalysis, Automated UA Leukoctes 0 Shravan/uL Last Edit by Jatin Keith on 09/05/24 09:22 UA Nitrite Last Edit by Jatin Keith on 09/05/24 09:22 UA Urobilinogen 0.2 mg/dL Last Edit by Jatin Keith on 09/05/24 09:22 UA Protein 0 mg/dL Last Edit by Jatin Keith on 09/05/24 09:22 UA pH 6.0 Last Edit by Jatin Keith on 09/05/24 09:22 UA Blood 0 Ramin/uL Last Edit by Jatin Keith on 09/05/24 09:22 UA Specific [place] 1.010 Last Edit by Jatin Keith on 09/05/24 09:22 UA Ketone Last Edit by Jatin Keith on 09/05/24 09:22 UA Bilirubin 0 mg/dL Last Edit by Jatin Keith on 09/05/24 09:22 UA Glucose 0 mg/dL Last Edit by Jatin Keith on 09/05/24 09:22 Results Reviewed Results Reviewed: Laboratory Last Values Urine pH (Auto) 6.0 09/05/24 09:08 Specific [place] (Auto) 1.010 09/05/24 09:08 Urine Protein (Auto) 0 mg/dL 09/05/24 09:08 Glucose (UA)(Auto) 0 mg/dL 09/05/24 09:08 Urine Blood (Auto) 0 Ramin/uL 09/05/24 09:08 Urine Bilirubin (Auto) 0 mg/dL 09/05/24 09:08 Urine Urobilinogen (Auto) 0.2 mg/dL 09/05/24 09:08 Leukocyte Esterase (Auto) 0 Shravan/uL 09/05/24 09:08 Assessment & Plan Assessment & Plan (1) Recurrent UTI: Code(s): N39.0 - Urinary tract infection, site not specified Category: Medical Plan In office urinalysis results reviewed the patient today; as noted above. PVR 0 mL. We discussed at length potential causes of recurrent urinary tract infections as well as further treatment options and risks and benefits of these treatment options. Prescription provided for postcoital antibiotic therapy. Patient Instructions - Increase fluid intake, especially after sexual activity, to help prevent UTIs. - Use prescribed macrobid following more frequent sexual activity as a prophylactic measure. Follow-up in 6 months with PVR; or sooner with any issues, concerns, and or questions. Orders: Orders AMB Urinalysis Automated Today Z13.9 - Encounter for screening, unspecified AMB Post Void Residual by ultrasound Today N39.0 - Urinary tract infection, site not specified Medications: New nitrofurantoin macrocrystal Postcotial 100 mg PO BEDTIME 90 days 90 caps 2RF N39.0 - Urinary tract infection, site not specified Patient Instructions: The patient had an opportunity to ask questions regarding the treatment plan. All questions were answered. Physical exam, labs, and imaging were discussed and reviewed in detail. As well as risks, benefits, and discussion of treatment choices. No major barriers to understanding were identified. The patient expressed understanding and agreement with the above treatment plan. The patient was made aware they should contact our office by phone for worsening of their current condition, the appearance of new symptoms, or with any questions or concerns. Compliance is encouraged with any medications and follow up testing that is ordered. It is a privilege to be allowed the opportunity to participate in? your urological care.? Again, if you have any questions or concerns If you have any questions or concerns please do not hesitate to contact me. The office is [phone]. This note is constructed using voice recognition software. While every effort has been made to ensure accuracy program developer errors may have been included. Yours sincerely, MARNI Enrique Coding Level of Care Code New Pt Level 4 (03768) Diagnoses Recurrent UTI N39.0 CPT Codes Post Residual Void - PVR CPT Code: 47450-Unui Void Residual by ultrasound ([id number])
== END 2024-09-05 09:34 | disposition home or self-care (01) ==
LOC: HO.HUSH 09:01
PROVIDERS: PCP Internal Medicine; Visit Provider Nurse Practitioner Family
DX: N39.0 Urinary tract infection, site not specified (principal); Z13.9 Encounter for screening, unspecified
CPT/HCPCS: 99204

== ENCOUNTER → 2024-09-05 09:00 | Outpatient (BNVA) | payer OTHER, SELFPAY | PROVIDERS: PCP Internal Medicine; Visit Provider Nurse Practitioner Family | DX: N39.0 Urinary tract infection, site not specified (principal) | CPT/HCPCS: 51798; 81003 ==